=== PATIENT | female | born 1975 | race Caucasian/White ===

== ENCOUNTER 2021-06-10 23:20 | Emergency (ER) | payer OTHER ==
[~2021-06-10 23:20] MED LIST: AUGMENTIN 875-1 EACH PO; IBUPROFEN800 MG PO; NAPROSYN500 MG PO; PREDNISONE 20MG20 MG PO; ZOFRAN4 MG PO
[2021-06-11] MEDS ORDERED: CEFDINIR300 MG PO (02:17)
[2021-06-11] MEDS ORDERED: NORCO 5-325 TA1 EACH PO (02:17)
[2021-06-11] MEDS ORDERED: IBUPROFEN800 MG PO (02:17)
== END 2021-06-11 02:52 | disposition home or self-care (01) ==
LOC: FER 23:20
DX: H66.92 Otitis media, unspecified, left ear (principal)
CPT/HCPCS: 99282; J1885

== ENCOUNTER 2022-05-25 14:42 | Emergency (ER) | payer OTHER ==
[~2022-05-25 14:42] MED LIST changes: +CEFDINIR300 MG PO; +NORCO 5-325 TA1 EACH PO
[2022-05-25 16:25] LABS: BILIRUBIN NEGATIVE (NEGATIVE); BLOOD 1+ Ery/uL (NEGATIVE); CLARITY CLOUDY (CLEAR); COLOR YELLOW (YELLOW); GLUCOSE (U) NORMAL (NORMAL); LEUKOCYTES NEGATIVE Leu/uL (NEGATIVE); NITRITE NEGATIVE (NEGATIVE); PROTEIN NEGATIVE (NEGATIVE); pH 7.5 (5.0-9.0)
[2022-05-25 16:26] LABS: BASOPHIL 0.3 % (0-2); EOSINOPHIL 0.4 % (0-5); HCT 42.5 % (37.0-47.0); HGB 14.2 g/dl (12.5-16.0); LYMPHOCYTE 16.1 % (15-48); MCH 30.2 pg (25.0-31.0); MCHC 33.4 g/dL (32.0-36.0); MCV 90.4 fL (78.0-100.0); MONOCYTE 6.3 % (0-12); MPV 11.2 fL (6.0-9.5); NEUTROPHIL 76.6 % (41-80); NRBC 0; PLT 167 K/uL (150-400); RDW 12.3 % (11.5-14.0); WBC 9.1 K/uL (4.0-10.5)
[2022-05-25 16:32] LABS: AMORPHOUS URATES CRYSTALS MODERATE; BACTERIA 1+
[2022-05-25 16:45] LABS: BUN/CREAT RATIO (CALC) 10.9 RATIO; CREATININE 1.01 mg/dL (0.51-0.95); POTASSIUM 3.9 mmol/L (3.5-5.1)
[2022-05-25] MEDS ORDERED: NORCO 5-325 TA1 EACH PO (18:18)
[2022-05-25] MEDS ORDERED: ONDANSETRON ODT4 MG PO (18:18)
== END 2022-05-25 19:35 | disposition home or self-care (01) ==
LOC: FER 14:42
PROVIDERS: Emergency Medicine
DX: N13.0 Hydronephrosis with ureteropelvic junction obstruction (principal); Z28.310 Unvaccinated for COVID-19
CPT/HCPCS: 36415; 80048; 81001; 85025; J1170; J1885; J2405; J2550; J3010; J7030